=== PATIENT | female | born 1965 | race Caucasian/White ===

== ENCOUNTER 2018-08-15 14:14 | Inpatient (IN) | payer OTHER ==
[~2018-08-15] VITALS: Ht 175.3 cm; Wt 94.8 kg
[2018-08-15 14:17] VITALS: BP 128/72
--- NOTE | 2018-08-15 14:21 | NUR ---
PT BROUGHT TO ED BED 9 FOR TRIAGE, URINE OBTAINED.
[2018-08-15] MEDS ORDERED: NACL 0.9% 500 ML IV ONE (14:27)
[2018-08-15] MEDS ORDERED: ONDANSETRON 4 MG/2 ML VIAL IVP ONE (14:30)
[2018-08-15] MEDS ORDERED: MORPHINE SULFATE 2 MG/ML SYR IVP ONE (14:30)
[2018-08-15] MEDS ORDERED: PANTOPRAZOLE 40 MG INJ VIAL IVP ONE (14:30)
--- NOTE | 2018-08-15 14:41 | NUR ---
U/S AT BEDSIDE AT THIS TIME.
--- NOTE | 2018-08-15 14:43 | NUR ---
52 YO F PT BIBA C/O EPIGASTRIC PAIN RADIATION TO BACK X 2 DAYS WITH HEMATEMESIS, AND BLOOD IN STOOL. NO SOB OR CP NOTED. +N/V/D. PT REPORTS THAT THE PAIN GOT SO SEVERE THIS AFTERNOON THAT SHE NEEDED TO CALL 911. PT DENIES ANY FEVERS AT THIS TIME. REPORTS APPETITE CHANGES X 2 DAYS. REPORTS SHE HAS HAD INTERMITTENT PERIODS OF DIARRHEA X 2 DAYS, LAST EPISODE WAS ABOUT AN HOUR AGO. PT REPORTS BRIGHT RED BLOOD NOTED IN FECES. AAOX4, GCS 15, CMS INTACT, RR EVEN AND UNLABORED, LUNG COTA BL CLEAR. ABD SOFT, NON-TENDER. BOWEL SOUNDS ACTIVE X 4 QUADS. AMBULATORY W/ STEADY GAIT. ER MD NOTIFIED OF PT STATUS. PT NEEDS MET. SAFETY PRECAUTIONS IN PLACE. WILL CONTINUE TO MONITOR.
[2018-08-15 15:13] LABS: BASOPHILS % (AUTO) 0.2 % (0.0-2.0); EOSINOPHILS # (AUTO) 0.1 K/uL (0-0.4); EOSINOPHILS % (AUTO) 0.7 % (0.0-4.0); HEMOGLOBIN 11.9 g/dL (12.0-16.0); LYMPHOCYTES # (AUTO) 2.2 K/uL (2.5-16.5); LYMPHOCYTES % (AUTO) 23.4 % (20.5-51.1); MEAN CORPUSCULAR HEMOGLOBIN 27 pg (27-31); MEAN CORPUSCULAR HGB CONC 32 g/dL (33-37); MEAN CORPUSCULAR VOLUME 83.8 fL (80-94); MONOCYTES # (AUTO) 0.5 K/uL (0.8-1.0); MONOCYTES % (AUTO) 5.4 % (1.7-9.3); NEUTROPHILS # (AUTO) 6.5 K/uL (1.8-7.7); NEUTROPHILS % (AUTO) 70.3 % (42.2-75.2); PLATELET COUNT (AUTO) 280 K/uL (140-450); RED BLOOD CELL COUNT(AUTO) 4.42 MIL/uL (4.20-5.40); RED CELL DISTRIBUTION WIDTH 16.2 % (11.6-13.7); WHITE BLOOD COUNT (AUTO) 9.2 K/uL (4.8-10.8)
[2018-08-15 15:23] LABS: ANION GAP 12.4 (8-16); CARBON DIOXIDE 28.7 mmol/L (21-32); CREATININE 0.9 mg/dL (0.6-1.3); POTASSIUM 4.1 mmol/L (3.5-5.1)
[2018-08-15 15:30] LABS: ALBUMIN 3.5 g/dL (3.4-5.0); TOTAL BILIRUBIN 0.2 mg/dL (0.0-1.0)
--- NOTE | 2018-08-15 15:43 | NUR ---
pt resting comfortably in [facility] at this time w/ vss, rr even and unlabored. pt needs met. safety precautions in place. will continue to monitor.
--- NOTE | 2018-08-15 16:17 | NUR ---
pt aware that she will be admitted. pt w/ vss, rr even and unlabored. safety precautions in place and pt needs met. will continue to monitor.
[2018-08-15] MEDS ORDERED: ACETAMINOPHEN 325 MG TAB PO PRN (16:20)
[2018-08-15] MEDS ORDERED: ONDANSETRON 4 MG/2 ML VIAL IVP PRN (16:20)
--- NOTE | 2018-08-15 17:05 | NUR ---
Patient will be admitted to [facility]. Admited to M/S. Will go to room 112A. Belongings list completed. Report to MANN Masters.
[2018-08-15 17:10] VITALS: BP 127/82
--- NOTE | 2018-08-15 17:10 | NUR ---
RECEIVED PT FROM ED NURSE KAMLA. PT IN STABLE CONDITION. NO COMPLAINTS OF PAIN AT THIS TIME. VS STABLE. IV SITE PATENT AND ASYMPTOMATIC. PT IS AMBULATORY, GAIT EVEN AND STEADY. SKIN INTACT. UPDATED BOARD AND INTRODUCED SELF TO PT. ALL SAFETY PRECAUTIONS IN PLACE. WILL CONTINUE TO MONITOR.
[2018-08-15] MEDS: DEXT 5% /NACL 0.9% 1,000 ML IV SCH (17:48)
--- NOTE | 2018-08-15 19:25 | NUR ---
RECEIVED PATIENT LYING ON BED. PATIENT AA0X4, AMBULATORY WITH ASSIST. DISCUSS PLAN OF CARE. BED IN LOW LOCKED POSITION . CALL LIGHT WITHIN REACH. WILL CONTINUE TO MONITOR.
--- NOTE | 2018-08-15 19:25 | NUR ---
ENDORSED PLAN OF CARE TO COBOL MAINFRAME DEVELOPER RN AT BEDSIDE. PT IN STABLE CONDITION.
[2018-08-15 20:00] VITALS: BP 121/73
--- NOTE | 2018-08-15 20:30 | NUR ---
PATIENT PICK-UP BY THE ACCOUNT INFORMATION CLERK FOR HIDA SCAN VIA WHEELCHAIR. PATIENT LEFT IN STABLE CONDITION .
--- NOTE | 2018-08-15 22:00 | NUR ---
PATIENT CAME BACK FROM DG SCAN. PATIENT ASKED PAIN MEDICATION. WILL CONTINUE TO MONITOR.
[2018-08-15] MEDS: MORPHINE SULFATE 2 MG/ML SYR IVP PRN (22:17)
--- NOTE | 2018-08-16 00:20 | NUR ---
PATIENT REQUESTING STRONGER PAIN MEDICATION. CALLED DR. NARANJO DISPENSARY CLERK FOR DR. TINEO. INSTRUCTED NO CHANGE OF MEDICATION AND ORDER TO GIVE ANOTHER MORPHINE NOW 2MG. EXPLAINED THAT MORPHINE JUST GIVEN 2 HRS. AGO AND HE INSTRUCTED TO GIVE ANOTHER DOSE. FOLLOWED ORDERS AND MORPHINE GIVEN TO PATIENT . V/S TAKEN AND RECORDED.
[2018-08-16] MEDS: MORPHINE SULFATE 2 MG/ML SYR IVP PRN ×2 (01:01→06:57)
[2018-08-16] MEDS: HYDROcodone/APAP 5/325 MG 1 TAB TAB PO PRN ×4 (02:16→20:46)
--- NOTE | 2018-08-16 02:47 | NUR ---
SEEN PATIENT ASLEEP ON BED BUT EASILY AROUSABLE. NO S/S OF DISTRESS NOTED. WILL CONTINUE TO MONITOR.
[2018-08-16 04:00] VITALS: BP 115/74
--- NOTE | 2018-08-16 04:00 | NUR ---
CHECKED PATIENT ASLEEP COMFORTABLE ON BED. V/S TAKEN AND RECORDED. CALL LIGHT WITHIN REACH. NO S/S OF DISTRESS NOTED.
[2018-08-16] MEDS: DEXT 5% /NACL 0.9% 1,000 ML IV SCH ×2 (06:20→21:35)
--- NOTE | 2018-08-16 07:10 | NUR ---
GAVE REPORT TO AM SHIFT RN AT BEDSIDE FOR CONTINUITY OF CARE. PATIENT IN STABLE CONDITION.
--- NOTE | 2018-08-16 07:40 | NUR ---
PATIENT AWAKE, ALERT. RESPIRATION EVEN, UNLABOR ON ROOM AIR. SKIN DRY AND WARM. IV PATENT AND INTACT. COMPLAINED MIGRAIN AND ABDOMINAL PAIN, AND STATED MORPHINE DOES NOT HELP. WILL NOTIFY MD. PLAN OF CARE WAS DISCUSSED WITH PATIENT. BED AT LOW POSITION, SIDE RAILS UP. COMMODE AT BEDSIDE. CALL LIGHT WITHIN REACH.
--- NOTE | 2018-08-16 07:46 | NUR ---
PATIENT HAS BEEN SCREENED AND CATEGORIZED MODERATE RISK. PATIENT WILL BE SEEN WITHIN 3-5 DAYS OF ADMISSION. 08/18- [address], [facility]
[2018-08-16 08:00] VITALS: BP 108/73
[2018-08-16] MEDS ORDERED: LORA-476 PO (09:32)
[2018-08-16] MEDS ORDERED: METO25TA PO (09:32)
[2018-08-16] MEDS ORDERED: BEN50 PO (09:32)
[2018-08-16] MEDS ORDERED: OMEP20TC12 PO (09:32)
[2018-08-16] MEDS ORDERED: [UNRECOGNIZED DRUG - CODE] PO (09:32)
[2018-08-16] MEDS ORDERED: ELA50 PO (09:32)
[2018-08-16] MEDS ORDERED: BACL10TA4 PO (09:32)
[2018-08-16] MEDS ORDERED: ACET-2858 PO (09:32)
[2018-08-16] MEDS ORDERED: ACET-9234 PO (09:32)
[2018-08-16 09:39] LABS: ALBUMIN 3.3 g/dL (3.4-5.0); ANION GAP 13.6 (8-16); CARBON DIOXIDE 22.4 mmol/L (21-32); CREATININE 0.9 mg/dL (0.6-1.3); TOTAL BILIRUBIN 0.3 mg/dL (0.0-1.0)
--- NOTE | 2018-08-16 10:06 | NUR ---
PATIENT IS RESTING COMFORTABLY. RESPIRATION EVEN, UNLABOR ON ROOM AIR. NO DISTRESS NOTED AT THIS TIME. CALL LIGHT WITHIN REACH.
[2018-08-16 10:23] LABS: BASOPHILS % (AUTO) 0.3 % (0.0-2.0); EOSINOPHILS # (AUTO) 0.1 K/uL (0-0.4); EOSINOPHILS % (AUTO) 1.5 % (0.0-4.0); HEMATOCRIT 34.6 % (36-48); LYMPHOCYTES # (AUTO) 2.3 K/uL (2.5-16.5); LYMPHOCYTES % (AUTO) 34.5 % (20.5-51.1); MEAN CORPUSCULAR HEMOGLOBIN 27 pg (27-31); MEAN CORPUSCULAR HGB CONC 32 g/dL (33-37); MEAN CORPUSCULAR VOLUME 84.3 fL (80-94); MONOCYTES # (AUTO) 0.5 K/uL (0.8-1.0); MONOCYTES % (AUTO) 6.8 % (1.7-9.3); NEUTROPHILS # (AUTO) 3.7 K/uL (1.8-7.7); NEUTROPHILS % (AUTO) 56.9 % (42.2-75.2); PLATELET COUNT (AUTO) 269 K/uL (140-450); RED BLOOD CELL COUNT(AUTO) 4.11 MIL/uL (4.20-5.40); RED CELL DISTRIBUTION WIDTH 16.4 % (11.6-13.7); WHITE BLOOD COUNT (AUTO) 6.6 K/uL (4.8-10.8)
--- NOTE | 2018-08-16 10:30 | NUR ---
EXPLAINED TO PATIENT REGARDING FALL RISK PRECAUTION. PATIENT REFUSED TO CHANGE INTO YELLOW GOWN AND SOCKS, OR PUT TRANSIT CLERK LIGHT TO USE BATHROOM, STATED SHE CAN DO EVERYTHING BY HERSELF. WILL CONTINUE TO CLOSELY MONITOR.
[2018-08-16] MEDS ORDERED: LORazepam 1 MG TAB PO PRN (10:45)
[2018-08-16] MEDS ORDERED: diphenhydrAMINE 50 MG CAP PO PRN (10:45)
[2018-08-16] MEDS ORDERED: BACLOFEN 10 MG TAB PO PRN (10:45)
[2018-08-16] MEDS: KETOROLAC 15 MG/ML VIAL IVP PRN ×2 (10:59→18:26)
[2018-08-16] MEDS ORDERED: METOPROLOL SUCCINATE 50 MG TABER PO SCH (11:30)
[2018-08-16] MEDS ORDERED: PANTOPRAZOLE 40 MG TABEC PO SCH (11:30)
--- NOTE | 2018-08-16 11:36 | NUR ---
PATIENT WAS SLEEPING COMFORTABLY. RESPIRATION EVEN, UNLABOR ON ROOM AIR. INSTRUCTED PATIENT TO CALL STAFF WHEN SHE HAS BM. MEDS WERE GIVEN PER ORDER. CALL LIGHT WITHIN REACH
--- NOTE | 2018-08-16 12:45 | NUR ---
PATIENT IS SLEEPING COMFORTABLY. RESPIRATION EVEN, UNLABOR ON ROOM AIR. NO DISTRESS NOTED. CALL LIGHT WITHIN REACH
--- NOTE | 2018-08-16 14:51 | NUR ---
PATIENT IS AWAKE, ALERT. RESPIRATION EVEN, UNLABOR ON ROOM AIR. IVF WAS HUNG. PATIENT COMPLAINED OF MIGRAIN AND ABDOMINAL PAIN 6/10, WILL MEDICATE PER ORDER. CALL LIGHT WITHIN REACH
[2018-08-16 16:00] VITALS: BP 105/62
--- NOTE | 2018-08-16 16:11 | NUR ---
PATIENT COMPLAINED OF DYSURIA WITH BURNING SENSATION. MD WAS MADE AWARE. INSTRUCTED PATIENT TO DO A CLEAN CATCH URINE SAMPLE. WILL FOLLOW UP WITH RESULT.
--- NOTE | 2018-08-16 18:30 | NUR ---
PATIENT WAS SLEEPING COMFORTABLY. RESPIRATION EVEN, UNLABOR ON ROOM AIR. NO DISTRESS NOTED AT THIS TIME. PATIENT COMPLAINED OF ABDOMINAL PAIN. MED WAS GIVEN PER ORDER. CALL LIGHT WITHIN REACH
--- NOTE | 2018-08-16 19:34 | NUR ---
ENDORSEMENT GIVEN TO SEGMENTAL PAVING SUPERVISOR NURSE. PATIENT IS STABLE AT THIS TIME
--- NOTE | 2018-08-16 19:35 | NUR ---
RECEIVED REPORT FROM DAYSTXFT NURSE AT BEDSIDE FOR CONTINUITY OF CARE. PT AAOX4. PT AMBULATE WITH WALKER. PT IV LAC 22GVD5 NS 75ML/HR . NO SOB NO S/S OF DISTRESS ON RA. BED LOWERED CALL LIGHT WITHIN REACH WILL CONTINUE TO MONITOR.
[2018-08-16] MEDS: GABAPENTIN 300 MG CAP PO SCH (20:46)
[2018-08-16] MEDS ORDERED: AMITRIPTYLINE 50 MG TAB PO SCH (21:00)
--- NOTE | 2018-08-16 21:46 | NUR ---
ADMIN PAIN MED 1 HR AGO/ PT RESTING IN BED WILL CONTINUE TO MONITOR.
--- NOTE | 2018-08-16 23:02 | NUR ---
ADMIN ANXIETY MED FOR ANXIETY. PT LESS ANXIOUS RESTING IN BED WILL CONTINUE TO MONITOR.
[2018-08-17] VITALS: BP 133/68
[2018-08-17] MEDS: KETOROLAC 15 MG/ML VIAL IVP PRN ×2 (00:27→06:45)
[2018-08-17 00:53] LABS: APPEARANCE,URINE CLOUDY (CLEAR); BILIRUBIN,URINE NEGATIVE (NEGATIVE); BLOOD, URINE TRACE-I (NEGATIVE); COLOR,URINE YELLOW (YELLOW); LEUKOCYTE ESTERASE ,URINE TRACE (NEGATIVE); NITRITE, URINE POSITIVE (NEGATIVE); PH,URINE 5.5 (5.0-9.0); UGLUCOSE NEGATIVE (NEGATIVE)
--- NOTE | 2018-08-17 01:17 | NUR ---
ADMIN PAIN MED 1 HR AGO. PAIN MED EFFECTIVE PT SLEEPING WILL CONTINUE TO MONITOR.
[2018-08-17 01:21] LABS: RBC,URINE 0-5 (RARE) /HPF (0-5); WBC,URINE TOO MANY TO COUNT /HPF (0-5)
[2018-08-17] MEDS ORDERED: PANTOPRAZOLE 40 MG TABEC PO SCH (06:30)
[2018-08-17 07:23] LABS: BASOPHILS % (AUTO) 0.4 % (0.0-2.0); EOSINOPHILS # (AUTO) 0.1 K/uL (0-0.4); EOSINOPHILS % (AUTO) 1.5 % (0.0-4.0); HEMATOCRIT 34.2 % (36-48); HEMOGLOBIN 11.1 g/dL (12.0-16.0); LYMPHOCYTES # (AUTO) 2.3 K/uL (2.5-16.5); LYMPHOCYTES % (AUTO) 31.3 % (20.5-51.1); MEAN CORPUSCULAR HEMOGLOBIN 27 pg (27-31); MEAN CORPUSCULAR HGB CONC 32 g/dL (33-37); MEAN CORPUSCULAR VOLUME 83.8 fL (80-94); MONOCYTES # (AUTO) 0.4 K/uL (0.8-1.0); MONOCYTES % (AUTO) 5.7 % (1.7-9.3); NEUTROPHILS # (AUTO) 4.4 K/uL (1.8-7.7); NEUTROPHILS % (AUTO) 61.1 % (42.2-75.2); PLATELET COUNT (AUTO) 246 K/uL (140-450); RED BLOOD CELL COUNT(AUTO) 4.08 MIL/uL (4.20-5.40); RED CELL DISTRIBUTION WIDTH 16.3 % (11.6-13.7); WHITE BLOOD COUNT (AUTO) 7.2 K/uL (4.8-10.8)
--- NOTE | 2018-08-17 07:28 | NUR ---
ADMIN PAIN MED. PAIN MED EFFECTIVE. WILL CONTINUE TO MONITOR.
--- NOTE | 2018-08-17 07:29 | NUR ---
ENDORSED REPORT TO DAYSHIFT NURSE AT BEDSIDE FOR CONTINUITY OF CARE.
--- NOTE | 2018-08-17 07:30 | NUR ---
PATIENT AWAKE, ALERT. RESPIRATION EVEN, UNLABOR ON ROOM AIR. SKIN DRY AND WARM. IV PATENT AND INTACT. DENIED PAIN, SOB AT THIS TIME. PLAN OF CARE WAS DISCUSSED WITH PATIENT. BED AT LOW POSITION, SIDE RAILS UP. CALL LIGHT WITHIN REACH. BED COMMODE AT BEDSIDE. .
[2018-08-17 08:00] VITALS: BP 115/59
[2018-08-17] MEDS: GABAPENTIN 300 MG CAP PO SCH (08:50)
[2018-08-17] MEDS: DEXT 5% /NACL 0.9% 1,000 ML IV SCH (09:00)
[2018-08-17] MEDS ORDERED: METOPROLOL SUCCINATE 50 MG TABER PO SCH (09:00)
--- NOTE | 2018-08-17 09:00 | NUR ---
PATIENT WAS SLEEPING COMFORTABLY. RESPIRATION EVEN, UNLABOR ON ROOM AIR. NO DISTRESS NOTED AT THIS TIME. STOOL SAMPLE WAS COLLECTED AND SENT TO LAB
--- NOTE | 2018-08-17 10:30 | NUR ---
IV ON RIGHT AC WAS REMOVED, CATHETER INTACT, NO ACTIVE BLEEDING SEEN. PATIENT TOLERATED WELL
--- NOTE | 2018-08-17 12:30 | NUR ---
PATIENT AWAKE, ALERT, EATING LUNCH COMFORTABLY. RESPIRATION EVEN, UNLABOR ON ROOM AIR. COMPLAINED OF MIGRAINE PAIN 05/11, MED WAS GIVEN PER ORDER. CALL LIGHT WITHIN REACH
[2018-08-17] MEDS: HYDROcodone/APAP 5/325 MG 1 TAB TAB PO PRN (12:33)
--- NOTE | 2018-08-17 14:00 | NUR ---
PATIENT IS SLEEPING COMFORTABLY. RESPIRATION EVEN, UNLABOR ON ROOM AIR. NO DISTRESS NOTED AT THIS TIME. CALL LIGHT WITHIN REACH
--- NOTE | 2018-08-17 15:51 | NUR ---
DISCHARGE INSTRUCTION AND PRESCRIPTION WERE GIVEN AND EXPLAINED TO THE PATIENT. PATIENT VERBALIZED UNDERSTANDING. ID WAS REMOVED. ALL BELONGINGS WERE TAKEN WITH THE PATIENT. PATIENT WAS ESCORTED OUT BY STAFF IN WHEELCHAIR. PATIENT IS STABLE AT THIS TIME
[2018-08-17 15:52] VITALS: BP 131/70
[2018-08-17] MEDS ORDERED: SULF-58 PO (15:55)
--- NOTE | 2018-08-18 07:49 | NUR ---
RETRO FAXED ER REPORT, H&P, CONSULT AND DISCHARGE INSTRUCTIONS TO [facility] [place] [phone] NO DISCHARGE SUMMARY
== END 2018-08-17 15:58 | disposition home or self-care (01) | DRG 241 ==
LOC: MED 14:14 → MTU 16:22
PROVIDERS: ADMIT Hospitalist; ATTEND Hospitalist
DX: K27.9 Peptic ulcer, site unspecified, unspecified as acute or chronic, without hemorrhage or perforation (principal); I11.0 Hypertensive heart disease with heart failure; I50.42 Chronic combined systolic (congestive) and diastolic (congestive) heart failure; E66.01 Morbid (severe) obesity due to excess calories; K21.9 Gastro-esophageal reflux disease without esophagitis; E78.00 Pure hypercholesterolemia, unspecified; F32.9 Major depressive disorder, single episode, unspecified; M79.7 Fibromyalgia; E78.5 Hyperlipidemia, unspecified; I25.10 Atherosclerotic heart disease of native coronary artery without angina pectoris; F41.9 Anxiety disorder, unspecified; Z88.1 Allergy status to other antibiotic agents; Z88.8 Allergy status to other drugs, medicaments and biological substances; Z86.73 Personal history of transient ischemic attack (TIA), and cerebral infarction without residual deficits; Z90.49 Acquired absence of other specified parts of digestive tract; Z90.710 Acquired absence of both cervix and uterus; Z68.30 Body mass index [BMI] 30.0-30.9, adult
CPT/HCPCS: 36415; 71045; 76705; 78445; 80053; 81001; 82272; 83690; 85025; 87045; 87081; 87086; 87186; 89055; 93005; 96361; 96374; 96375; 99285; A9510; C9113; J1885; J2270; J2405; J7030; J7042; Q0092

== ENCOUNTER 2018-11-27 12:04 | Inpatient (IN) | payer OTHER ==
[~2018-11-27] VITALS: Ht 167.6 cm; Wt 113.4 kg
[~2018-11-27 12:04] MED LIST: ACET-9234 PO; BACL10TA4 PO; BEN50 PO; ELA50 PO; HYDR-5092 PO; LORA-476 PO; METO25TA PO; OMEP20TC12 PO; SULF-58 PO; [UNRECOGNIZED DRUG - CODE] PO
[2018-11-27 12:05] VITALS: BP 145/97
[2018-11-27] MEDS ORDERED: HYDROmorphone PFS 2 MG/ML SYR IVP ONE ×2 (12:55→14:10)
[2018-11-27] MEDS ORDERED: NITROGLYCERIN 2% 1 GM PKT TP ONE (12:55)
[2018-11-27] MEDS ORDERED: ASPIRIN 325 MG TAB PO ONE (12:55)
[2018-11-27 13:46] LABS: BASOPHILS % (AUTO) 0.3 % (0.0-2.0); EOSINOPHILS # (AUTO) 0.1 K/uL (0-0.4); HEMATOCRIT 35.9 % (36-48); HEMOGLOBIN 11.4 g/dL (12.0-16.0); LYMPHOCYTES % (AUTO) 27.5 % (20.5-51.1); MEAN CORPUSCULAR HEMOGLOBIN 26 pg (27-31); MEAN CORPUSCULAR HGB CONC 32 g/dL (33-37); MONOCYTES # (AUTO) 0.4 K/uL (0.8-1.0); MONOCYTES % (AUTO) 5.3 % (1.7-9.3); NEUTROPHILS # (AUTO) 4.7 K/uL (1.8-7.7); NEUTROPHILS % (AUTO) 65.9 % (42.2-75.2); PLATELET COUNT (AUTO) 222 K/uL (140-450); RED BLOOD CELL COUNT(AUTO) 4.33 MIL/uL (4.20-5.40); RED CELL DISTRIBUTION WIDTH 16.8 % (11.6-13.7); WHITE BLOOD COUNT (AUTO) 7.2 K/uL (4.8-10.8)
[2018-11-27 14:14] LABS: ANION GAP 10.9 (8-16); CREATININE 0.8 mg/dL (0.6-1.3); POTASSIUM 3.9 mmol/L (3.5-5.1)
[2018-11-27 14:27] LABS: ALBUMIN 3.4 g/dL (3.4-5.0); TOTAL BILIRUBIN 0.1 mg/dL (0.0-1.0)
[2018-11-27 14:40] LABS: CHOL/HDL RATIO 2.9 (1-4.5)
[2018-11-27 14:56] LABS: CREATINE KINASE MB 0.3 ng/mL (0-3.6)
[2018-11-27] MEDS ORDERED: ACETAMINOPHEN 325 MG TAB PO PRN (15:40)
[2018-11-27] MEDS ORDERED: diphenhydrAMINE 50 MG CAP PO PRN (15:40)
[2018-11-27] MEDS ORDERED: LORazepam 1 MG TAB PO PRN (15:40)
[2018-11-27] MEDS ORDERED: ONDANSETRON 4 MG/2 ML VIAL IVP PRN (15:40)
[2018-11-27] MEDS ORDERED: ALBUTEROL 0.083% 2.5 MG/3 ML NEBU INH PRN (15:40)
[2018-11-27 17:20] VITALS: BP 132/83
[2018-11-27] MEDS: HYDROmorphone PFS 2 MG/ML SYR IVP PRN (19:39)
[2018-11-27 20:00] VITALS: BP 136/81
[2018-11-27] MEDS: BACLOFEN 10 MG TAB PO SCH (21:25)
[2018-11-27] MEDS: AMITRIPTYLINE 50 MG TAB PO SCH (21:25)
[2018-11-27] MEDS: METOPROLOL 25 MG TAB PO SCH (21:26)
[2018-11-27] MEDS: HYDROcodone/APAP 10/325 MG 1 TAB TAB PO PRN (21:28)
[2018-11-28 00:02] VITALS: BP 111/70
[2018-11-28] MEDS: HYDROmorphone PFS 2 MG/ML SYR IVP PRN ×6 (00:02→20:27)
[2018-11-28] MEDS: HYDROcodone/APAP 10/325 MG 1 TAB TAB PO PRN ×2 (02:49→18:29)
[2018-11-28 04:09] VITALS: BP 113/64
[2018-11-28 08:00] VITALS: BP 128/78
[2018-11-28] MEDS: BACLOFEN 10 MG TAB PO SCH ×2 (08:16→20:28)
[2018-11-28] MEDS: ASPIRIN 81 MG TAB.CHEW PO SCH (08:17)
[2018-11-28] MEDS: METOPROLOL 25 MG TAB PO SCH ×2 (08:18→20:28)
[2018-11-28 12:00] VITALS: BP 125/75
[2018-11-28] MEDS ORDERED: ALUMINUM HYD/MAG/SIMETHICONE 30 ML UDC PO PRN (12:25)
[2018-11-28] MEDS ORDERED: PANT40EC PO (12:30)
[2018-11-28] MEDS ORDERED: PANTOPRAZOLE 40 MG TABEC PO SCH (13:00)
[2018-11-28 15:59] LABS: PROTHROMBIN TIME 9.8 secs (10.8-13.4)
[2018-11-28 16:00] VITALS: BP 111/66
[2018-11-28] MEDS: PANTOPRAZOLE 40 MG TABEC PO SCH (16:13)
[2018-11-28 20:00] VITALS: BP 135/80
[2018-11-28] MEDS: AMITRIPTYLINE 50 MG TAB PO SCH (20:29)
[2018-11-29] VITALS: BP 113/70
[2018-11-29] MEDS: HYDROmorphone PFS 2 MG/ML SYR IVP PRN ×4 (00:28→14:25)
[2018-11-29] MEDS: HYDROcodone/APAP 10/325 MG 1 TAB TAB PO PRN ×2 (01:38→08:48)
[2018-11-29] MEDS: AMITRIPTYLINE 50 MG TAB PO SCH (01:41)
[2018-11-29 04:00] VITALS: BP 98/62
[2018-11-29] MEDS: PANTOPRAZOLE 40 MG TABEC PO SCH (06:06)
[2018-11-29 08:00] VITALS: BP 134/89
[2018-11-29] MEDS: ASPIRIN 81 MG TAB.CHEW PO SCH (08:48)
[2018-11-29] MEDS: METOPROLOL 25 MG TAB PO SCH (08:48)
[2018-11-29] MEDS: BACLOFEN 10 MG TAB PO SCH (08:48)
[2018-11-29 12:00] VITALS: BP 128/75
[2018-11-29 12:34] LABS: BASOPHILS % (AUTO) 0.5 % (0.0-2.0); EOSINOPHILS # (AUTO) 0.1 K/uL (0-0.4); EOSINOPHILS % (AUTO) 1.5 % (0.0-4.0); HEMOGLOBIN 10.5 g/dL (12.0-16.0); LYMPHOCYTES # (AUTO) 1.9 K/uL (2.5-16.5); LYMPHOCYTES % (AUTO) 25.2 % (20.5-51.1); MEAN CORPUSCULAR HEMOGLOBIN 26 pg (27-31); MEAN CORPUSCULAR HGB CONC 32 g/dL (33-37); MEAN CORPUSCULAR VOLUME 83.1 fL (80-94); MONOCYTES # (AUTO) 0.5 K/uL (0.8-1.0); MONOCYTES % (AUTO) 6.3 % (1.7-9.3); NEUTROPHILS % (AUTO) 66.5 % (42.2-75.2); PLATELET COUNT (AUTO) 213 K/uL (140-450); RED BLOOD CELL COUNT(AUTO) 3.97 MIL/uL (4.20-5.40); RED CELL DISTRIBUTION WIDTH 16.3 % (11.6-13.7); WHITE BLOOD COUNT (AUTO) 7.6 K/uL (4.8-10.8)
[2018-11-29 12:59] LABS: CREATININE 0.8 mg/dL (0.6-1.3); MAGNESIUM 1.8 mg/dL (1.8-2.4); TOTAL BILIRUBIN 0.1 mg/dL (0.0-1.0)
[2018-11-29] MEDS ORDERED: CHLORHEXADINE GLUC 2% CLOTH TP SCH (14:00)
[2018-11-29] MEDS ORDERED: MUPIROCIN 2% OINT 22 GM TUBE TP SCH (14:00)
[2018-11-29 16:00] VITALS: BP 116/79
== END 2018-11-29 17:20 | disposition home or self-care (01) | DRG 203 ==
LOC: MED 12:04 → MMU 15:42 → MTU 17:43
PROVIDERS: ADMIT Internal Medicine Pulmonary Disease; ATTEND Internal Medicine Pulmonary Disease
DX: R07.89 Other chest pain (principal); I42.9 Cardiomyopathy, unspecified; I11.0 Hypertensive heart disease with heart failure; G62.9 Polyneuropathy, unspecified; I50.9 Heart failure, unspecified; Z68.41 Body mass index [BMI] 40.0-44.9, adult; K21.9 Gastro-esophageal reflux disease without esophagitis; E78.5 Hyperlipidemia, unspecified; F17.210 Nicotine dependence, cigarettes, uncomplicated; G43.909 Migraine, unspecified, not intractable, without status migrainosus; M79.7 Fibromyalgia; G89.4 Chronic pain syndrome; E66.9 Obesity, unspecified; F41.9 Anxiety disorder, unspecified; Z86.73 Personal history of transient ischemic attack (TIA), and cerebral infarction without residual deficits; Z90.710 Acquired absence of both cervix and uterus; Z90.49 Acquired absence of other specified parts of digestive tract; Z98.891 History of uterine scar from previous surgery; Z88.6 Allergy status to analgesic agent; Z88.1 Allergy status to other antibiotic agents; Z88.5 Allergy status to narcotic agent; Z88.8 Allergy status to other drugs, medicaments and biological substances; Z79.899 Other long term (current) drug therapy
CPT/HCPCS: 36415; 71045; 80053; 82550; 82553; 83735; 83880; 84484; 85025; 85379; 85610; 85730; 87081; 93005; 94640; 96372; 99291; J1170; J7613

== ENCOUNTER 2018-12-12 19:41 | Emergency (ER) | payer OTHER ==
[~2018-12-12] VITALS: Ht 167.6 cm; Wt 108.9 kg
[2018-12-12 19:41] VITALS: BP 149/80
[~2018-12-12 19:41] MED LIST changes: -OMEP20TC12 PO; +PANT40EC PO; -SULF-58 PO
[2018-12-12 20:31] LABS: BASOPHILS % (AUTO) 0.4 % (0.0-2.0); EOSINOPHILS # (AUTO) 0.1 K/uL (0-0.4); EOSINOPHILS % (AUTO) 1.2 % (0.0-4.0); HEMATOCRIT 37.3 % (36-48); HEMOGLOBIN 11.9 g/dL (12.0-16.0); LYMPHOCYTES # (AUTO) 2.3 K/uL (2.5-16.5); LYMPHOCYTES % (AUTO) 22.2 % (20.5-51.1); MEAN CORPUSCULAR HEMOGLOBIN 26 pg (27-31); MEAN CORPUSCULAR HGB CONC 32 g/dL (33-37); MEAN CORPUSCULAR VOLUME 82.2 fL (80-94); MONOCYTES # (AUTO) 0.5 K/uL (0.8-1.0); MONOCYTES % (AUTO) 4.8 % (1.7-9.3); NEUTROPHILS # (AUTO) 7.5 K/uL (1.8-7.7); NEUTROPHILS % (AUTO) 71.4 % (42.2-75.2); PLATELET COUNT (AUTO) 301 K/uL (140-450); RED BLOOD CELL COUNT(AUTO) 4.54 MIL/uL (4.20-5.40); WHITE BLOOD COUNT (AUTO) 10.6 K/uL (4.8-10.8)
[2018-12-12 21:10] LABS: ALBUMIN 3.5 g/dL (3.4-5.0); ANION GAP 11.6 (8-16); CARBON DIOXIDE 28.4 mmol/L (21-32); TOTAL BILIRUBIN 0.2 mg/dL (0.0-1.0)
[2018-12-12] MEDS ORDERED: MORPHINE SULFATE 4 MG/ML SYR IVP ONE (22:20)
[2018-12-13] MEDS ORDERED: MORPHINE SULFATE 4 MG/ML SYR IVP ONE (00:15)
[2018-12-13 00:46] VITALS: BP 128/86
== END 2018-12-13 00:46 | disposition home or self-care (01) ==
LOC: MED 19:41
DX: R07.9 Chest pain, unspecified (principal); I11.0 Hypertensive heart disease with heart failure; I50.9 Heart failure, unspecified; F17.210 Nicotine dependence, cigarettes, uncomplicated; Z90.49 Acquired absence of other specified parts of digestive tract; Z90.710 Acquired absence of both cervix and uterus; Z86.73 Personal history of transient ischemic attack (TIA), and cerebral infarction without residual deficits; Z79.899 Other long term (current) drug therapy; Z88.6 Allergy status to analgesic agent; Z88.1 Allergy status to other antibiotic agents; Z88.8 Allergy status to other drugs, medicaments and biological substances
CPT/HCPCS: 36415; 71045; 80053; 83880; 84484; 85025; 93005; 96374; 96376; 99284; J2270; Q0092

== ENCOUNTER 2019-06-04 20:23 | Emergency (ER) | payer OTHER ==
[~2019-06-04] VITALS: Ht 167.6 cm; Wt 108.9 kg
[~2019-06-04 20:23] MED LIST changes: +GABA600T12 PO; -[UNRECOGNIZED DRUG - CODE] PO
[2019-06-04 20:24] VITALS: BP 135/74
--- NOTE | 2019-06-04 20:28 | NUR ---
PT BIBA TO BED 04.
--- NOTE | 2019-06-04 20:38 | NUR ---
PT TO ED VIA EMS FOR C/O BILATERAL LEG PAIN. PT DENIES INJURY OR TRAUMA. PER PT "I WAS STANDING UP TO USE THE RESTROOM AND THEN ALL OF A SUDDEN I COULDNT GET UP" NO OBVIOUS DEFORMITY NOTED. PT PLACED INTO BED, PENDING MD MUELLER.
--- NOTE | 2019-06-04 21:01 | NUR ---
Dr. Robb examining patient.
[2019-06-04] MEDS ORDERED: MORPHINE SULFATE 4 MG/ML SYR IM ONE (21:10)
--- NOTE | 2019-06-04 21:10 | NUR ---
PT REQUESTING X RAY OF LEG. PT STATES "I WANT AN X RAY, MY TOE HURTS WHENEVER I MOVE IT" EXPLAINED TO PT THAT SHE IS RECEIVING A CT SCAN. ER AWARE.
--- NOTE | 2019-06-04 21:20 | NUR ---
PT TO CT VIA [facility].
[2019-06-04] MEDS ORDERED: ONDANSETRON 4 MG/2 ML VIAL IVP ONE (21:55)
[2019-06-04] MEDS ORDERED: MORPHINE SULFATE 10 MG/ML VIAL IVP ONE (21:55)
--- NOTE | 2019-06-04 22:02 | NUR ---
PT TAKEN TO RAD
--- NOTE | 2019-06-04 22:32 | NUR ---
PT RETURN FROM RAD
--- NOTE | 2019-06-04 22:35 | NUR ---
ASSISTED PT TO RESTROOM VIA W/C.
--- NOTE | 2019-06-04 22:37 | NUR ---
IV INFLITRATED. ER MD AWARE. OKAY TO GIVE MEDS IM PER .
--- NOTE | 2019-06-04 22:45 | NUR ---
IV removed, catheter intact and site benign. Applied folded 4x4 gauze and tape to stop bleeding.
[2019-06-04 22:56] VITALS: BP 106/73
--- NOTE | 2019-06-04 22:56 | NUR ---
Patient discharged with v/s stable. Written and verbal after care instructions given and explained. Patient alert, oriented and verbalized understanding of instructions. Wheel Chair Assisted with by caregiver. All questions addressed prior to discharge. ID band removed. Patient advised to follow up with PMD. Rx of VALIUM, NARACAN given. Patient educated on indication of medication including possible reaction and side effects. Opportunity to ask questions provided and answered.
== END 2019-06-04 22:56 | disposition home or self-care (01) ==
LOC: MED 20:23
DX: M54.41 Lumbago with sciatica, right side (principal); M54.42 Lumbago with sciatica, left side; I11.0 Hypertensive heart disease with heart failure; I50.9 Heart failure, unspecified; J44.9 Chronic obstructive pulmonary disease, unspecified; K21.9 Gastro-esophageal reflux disease without esophagitis; Z86.73 Personal history of transient ischemic attack (TIA), and cerebral infarction without residual deficits; Z90.49 Acquired absence of other specified parts of digestive tract; Z90.710 Acquired absence of both cervix and uterus; Z88.2 Allergy status to sulfonamides; Z88.1 Allergy status to other antibiotic agents; Z88.8 Allergy status to other drugs, medicaments and biological substances
CPT/HCPCS: 72131; 72192; 73560; 73600; 96372; 99284; J2270; J2405; Q0092

== ENCOUNTER 2019-08-31 13:03 | Emergency (ER) | payer OTHER ==
[~2019-08-31] VITALS: Ht 167.6 cm; Wt 113.4 kg
[2019-08-31 13:03] VITALS: BP 134/80
--- NOTE | 2019-08-31 13:55 | NUR ---
c/o sudden onset of midsternal chest pain radiating to left side of neck x today denies injury---adds feeling very tired and sob ===nc 2L o2 placed
--- NOTE | 2019-08-31 14:03 | NUR ---
XRAY AT BEDSIDE.
--- NOTE | 2019-08-31 14:08 | NUR ---
LAB AT BEDSIDE. PT TO GIVE URINE AFTER, PROVIDED WITH COLLECTION HAT FOR URINE SAMPLE.
[2019-08-31 14:56] LABS: BASOPHILS % (AUTO) 0.3 % (0.0-2.0); EOSINOPHILS % (AUTO) 0.4 % (0.0-4.0); HEMATOCRIT 38.4 % (36-48); HEMOGLOBIN 12.3 g/dL (12.0-16.0); LYMPHOCYTES % (AUTO) 22.1 % (20.5-51.1); MEAN CORPUSCULAR HEMOGLOBIN 28 pg (27-31); MEAN CORPUSCULAR HGB CONC 32 g/dL (33-37); MEAN CORPUSCULAR VOLUME 86.1 fL (80-94); MONOCYTES # (AUTO) 0.4 K/uL (0.8-1.0); MONOCYTES % (AUTO) 4.6 % (1.7-9.3); NEUTROPHILS # (AUTO) 6.6 K/uL (1.8-7.7); NEUTROPHILS % (AUTO) 72.6 % (42.2-75.2); PLATELET COUNT (AUTO) 248 K/uL (140-450); RED BLOOD CELL COUNT(AUTO) 4.46 MIL/uL (4.20-5.40); RED CELL DISTRIBUTION WIDTH 16.2 % (11.6-13.7); WHITE BLOOD COUNT (AUTO) 9.1 K/uL (4.8-10.8)
[2019-08-31 15:21] LABS: PROTHROMBIN TIME 9.7 secs (10.8-13.4)
--- NOTE | 2019-08-31 15:45 | NUR ---
MED NOTIFIED FOR PAIN MEDS
[2019-08-31 16:04] LABS: ANION GAP 15.8 (8-16); CARBON DIOXIDE 27.2 mmol/L (21-32); CREATININE 0.8 mg/dL (0.6-1.3); TOTAL BILIRUBIN 0.2 mg/dL (0.0-1.0)
[2019-08-31 16:05] LABS: ALBUMIN 3.6 g/dL (3.4-5.0)
[2019-08-31] MEDS ORDERED: MORPHINE SULFATE 2 MG/ML SYR IVP ONE (16:05)
[2019-08-31 17:06] LABS: APPEARANCE,URINE CLEAR (CLEAR); BILIRUBIN,URINE NEGATIVE (NEGATIVE); BLOOD, URINE TRACE-I (NEGATIVE); COLOR,URINE YELLOW (YELLOW); LEUKOCYTE ESTERASE ,URINE TRACE (NEGATIVE); NITRITE, URINE NEGATIVE (NEGATIVE); UGLUCOSE NEGATIVE (NEGATIVE)
[2019-08-31 17:21] LABS: RBC,URINE 0-5 /HPF (0-5); WBC,URINE 0-5 /HPF (0-5)
[2019-08-31 18:15] VITALS: BP 136/81
== END 2019-08-31 18:15 | disposition home or self-care (01) ==
LOC: MED 13:03
DX: R07.89 Other chest pain (principal); R05 Cough; R06.02 Shortness of breath; I11.0 Hypertensive heart disease with heart failure; I50.9 Heart failure, unspecified; K21.9 Gastro-esophageal reflux disease without esophagitis; J44.9 Chronic obstructive pulmonary disease, unspecified; Z86.73 Personal history of transient ischemic attack (TIA), and cerebral infarction without residual deficits; Z88.1 Allergy status to other antibiotic agents; Z88.6 Allergy status to analgesic agent; Z88.8 Allergy status to other drugs, medicaments and biological substances; Z79.899 Other long term (current) drug therapy
CPT/HCPCS: 36415; 71045; 80053; 81001; 83605; 83880; 84484; 85025; 85610; 85730; 87040; 87086; 93005; 96374; 99284; J2270; Q0092; 81002

== ENCOUNTER 2019-09-18 06:19 | Day surgery (SDC) | payer OTHER ==
[~2019-09-18] VITALS: Ht 167.6 cm; Wt 115.2 kg
[2019-09-18 07:18] LABS: ALBUMIN 3.3 g/dL (3.4-5.0); ANION GAP 14.2 (8-16); CARBON DIOXIDE 25.2 mmol/L (21-32); CREATININE 0.8 mg/dL (0.6-1.3); POTASSIUM 3.4 mmol/L (3.5-5.1); TOTAL BILIRUBIN 0.3 mg/dL (0.0-1.0)
[2019-09-18 07:23] LABS: BASOPHILS % (AUTO) 0.2 % (0.0-2.0); EOSINOPHILS # (AUTO) 0.1 K/uL (0-0.4); HEMATOCRIT 32.6 % (36-48); HEMOGLOBIN 10.4 g/dL (12.0-16.0); LYMPHOCYTES # (AUTO) 1.6 K/uL (2.5-16.5); LYMPHOCYTES % (AUTO) 30.7 % (20.5-51.1); MEAN CORPUSCULAR HEMOGLOBIN 28 pg (27-31); MEAN CORPUSCULAR HGB CONC 32 g/dL (33-37); MEAN CORPUSCULAR VOLUME 86.1 fL (80-94); MONOCYTES # (AUTO) 0.4 K/uL (0.8-1.0); MONOCYTES % (AUTO) 7.5 % (1.7-9.3); NEUTROPHILS # (AUTO) 3.1 K/uL (1.8-7.7); NEUTROPHILS % (AUTO) 59.6 % (42.2-75.2); PLATELET COUNT (AUTO) 247 K/uL (140-450); RED BLOOD CELL COUNT(AUTO) 3.78 MIL/uL (4.20-5.40); RED CELL DISTRIBUTION WIDTH 16.3 % (11.6-13.7); WHITE BLOOD COUNT (AUTO) 5.2 K/uL (4.8-10.8)
[2019-09-18] MEDS ORDERED: PROPOFOL 200 MG/20 ML VIAL IV ONE (08:43)
[2019-09-18] MEDS ORDERED: MIDAZOLAM 2 MG/2 ML VIAL ONE (08:52)
[2019-09-18] MEDS ORDERED: LACTATED RINGERS 1,000 ML IV SCH (09:22)
[2019-09-18] MEDS ORDERED: diphenhydrAMINE 50 MG/ML VIAL IVP PRN (09:25)
[2019-09-18] MEDS ORDERED: ONDANSETRON 4 MG/2 ML VIAL IVP PRN (09:25)
== END 2019-09-18 10:35 | disposition home or self-care (01) ==
LOC: MMU 06:19 → MOR 06:19
PROVIDERS: ATTEND Internal Medicine Gastroenterology
DX: Z12.11 Encounter for screening for malignant neoplasm of colon (principal); K57.30 Diverticulosis of large intestine without perforation or abscess without bleeding; K64.4 Residual hemorrhoidal skin tags; K44.9 Diaphragmatic hernia without obstruction or gangrene; K85.90 Acute pancreatitis without necrosis or infection, unspecified; Z80.0 Family history of malignant neoplasm of digestive organs; I10 Essential (primary) hypertension; M79.7 Fibromyalgia; G43.909 Migraine, unspecified, not intractable, without status migrainosus; M19.90 Unspecified osteoarthritis, unspecified site; E78.00 Pure hypercholesterolemia, unspecified; K21.9 Gastro-esophageal reflux disease without esophagitis; E66.01 Morbid (severe) obesity due to excess calories; Z68.41 Body mass index [BMI] 40.0-44.9, adult; Z87.442 Personal history of urinary calculi; F17.200 Nicotine dependence, unspecified, uncomplicated; Z88.1 Allergy status to other antibiotic agents; Z88.8 Allergy status to other drugs, medicaments and biological substances; Z79.899 Other long term (current) drug therapy; G89.29 Other chronic pain
CPT/HCPCS: 36415; 43235; 45378; 71045; 80053; 85025; 93005; J2704; J7030; J7120; Q0092; J2250

== ENCOUNTER 2019-10-11 22:03 | Inpatient (IN) | payer OTHER ==
[~2019-10-11] VITALS: Ht 167.6 cm; Wt 113.4 kg
[2019-10-11 22:03] VITALS: BP 118/81
--- NOTE | 2019-10-11 22:03 | NUR ---
[facility] ALS TO ER BED 03
[2019-10-11] MEDS ORDERED: MORPHINE SULFATE 4 MG/ML SYR IVP ONE (22:25)
--- NOTE | 2019-10-11 22:30 | NUR ---
53 Y/O FEMALE BROUGHT IN BY AMBULANCE FROM HOME WITH C/O CHEST PAIN 08/11, SOB, SHE WAS GIVEN NITRO ENROUTE, ON SINUS TACHYCARDIA. ERMD MADE AWARE. PLACED ON MONITOR. WILL CONTINUE TO MONITOR PMH:CHF ALLERGIES: SEE MED REC.
--- NOTE | 2019-10-11 22:30 | NUR ---
EKG PERFORMED AT BEDSIDE
[2019-10-11 23:04] LABS: BASOPHILS % (AUTO) 0.2 % (0.0-2.0); EOSINOPHILS # (AUTO) 0.1 K/uL (0-0.4); EOSINOPHILS % (AUTO) 0.9 % (0.0-4.0); HEMATOCRIT 32.4 % (36-48); HEMOGLOBIN 10.4 g/dL (12.0-16.0); LYMPHOCYTES # (AUTO) 2.5 K/uL (2.5-16.5); LYMPHOCYTES % (AUTO) 27.4 % (20.5-51.1); MEAN CORPUSCULAR HEMOGLOBIN 28 pg (27-31); MEAN CORPUSCULAR HGB CONC 32 g/dL (33-37); MEAN CORPUSCULAR VOLUME 86.5 fL (80-94); MONOCYTES # (AUTO) 0.5 K/uL (0.8-1.0); MONOCYTES % (AUTO) 5.7 % (1.7-9.3); NEUTROPHILS # (AUTO) 5.9 K/uL (1.8-7.7); NEUTROPHILS % (AUTO) 65.8 % (42.2-75.2); PLATELET COUNT (AUTO) 229 K/uL (140-450); RED BLOOD CELL COUNT(AUTO) 3.75 MIL/uL (4.20-5.40); RED CELL DISTRIBUTION WIDTH 15.9 % (11.6-13.7)
[2019-10-11 23:15] LABS: ANION GAP 13.7 (8-16); CARBON DIOXIDE 26.1 mmol/L (21-32); CREATININE 0.8 mg/dL (0.6-1.3); POTASSIUM 3.8 mmol/L (3.5-5.1)
[2019-10-11 23:21] LABS: ALBUMIN 3.1 g/dL (3.4-5.0); TOTAL BILIRUBIN 0.1 mg/dL (0.0-1.0)
[2019-10-12 01:00] VITALS: BP 119/84
--- NOTE | 2019-10-12 01:00 | NUR ---
. Admited to [id number]. Belongings list completed. Report to MANN COLUNGA .
--- NOTE | 2019-10-12 01:00 | NUR ---
RECEIVED BEDSIDE REPORT FROM ED RN MIKE, FOR PT'S CONTINUITY OF CARE. PT IS AAOX4, ON FLYING SHEAR OPERATOR, ON ROOM AIR, HAS RIGHT FA 20G SALINE LOCK, C/O CHEST PAIN. PT'S SKIN IS INTACT. WILL RICHI FOR ADDITIONAL ORDERS. EXPLAINED TO PT THE STOCK ROOM MANAGER ROUTINE, PT VERBALIZED UNDERSTANDING. SAFETY MEASURES IN PLACE. BED ON LOW POSITION, SIDE RAILS ARE UP, AND CALL LIGHT IS WITHIN REACH. WILL MONITOR PT THROUGHOUT SHIFT.
--- NOTE | 2019-10-12 03:00 | NUR ---
PAGED AND SPOKE WITH DR. BOSCH FOR ADDITIONAL ORDERS. REPEAT LAB WORK - CBC, BMP, AND SCHEDULED TROPONIN, MORPHINE 2NG Q6H PRN FOR SEVERE PAIN, AND FULL CODE STATUS. WILL CARRY OUT ORDERS.
[2019-10-12 04:00] VITALS: BP 116/76
--- NOTE | 2019-10-12 04:00 | NUR ---
VS CHECKED AND CHARTED. PT C/O CHEST PAIN, NON RADIATING. WILL MEDICATE. PT REQUESTED FOR SNACKS, JELLO AND PUDDING GIVEN.
[2019-10-12] MEDS: MORPHINE SULFATE 2 MG/ML SYR IVP PRN ×2 (04:24→11:00)
--- NOTE | 2019-10-12 04:24 | NUR ---
PT C/O SEVERE CHEST PAIN. ADMINISTERED PRN IV PUSH PAIN MEDICATION ORDERED. WILL CONTINUE TO MONITOR PT.
--- NOTE | 2019-10-12 05:58 | NUR ---
PT LYING DOWN ASLEEP WITH NO SIGNS OF DISTRESS. WILL ENDORSE TO AM SHIFT RN FOR PT'S CONTINUITY OF CARE.
--- NOTE | 2019-10-12 07:27 | NUR ---
RECEIVED REPORT FROM NIGHT RN. PATIENT IS FULL CODE, CAME FROM HOME. MANY ALLERGIES PRESENT. 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 AAOX4, ROOM AIR. IV TO RIGHT FA 20G SALINE LOCK. SKIN IS INTACT. PT REQUESTS BP TAKEN ON LEFT RADIAL. CURRENTLY IN BED SLEEPING, VISIBLE CHEST RISE AND FALL. WILL CONTINUE WITH PLAN OF CARE FOR THE DAY.
[2019-10-12 07:33] LABS: BASOPHILS % (AUTO) 0.3 % (0.0-2.0); EOSINOPHILS # (AUTO) 0.1 K/uL (0-0.4); EOSINOPHILS % (AUTO) 1.9 % (0.0-4.0); HEMATOCRIT 31.3 % (36-48); HEMOGLOBIN 10.1 g/dL (12.0-16.0); LYMPHOCYTES # (AUTO) 2.7 K/uL (2.5-16.5); LYMPHOCYTES % (AUTO) 41.2 % (20.5-51.1); MEAN CORPUSCULAR HEMOGLOBIN 28 pg (27-31); MEAN CORPUSCULAR HGB CONC 32 g/dL (33-37); MEAN CORPUSCULAR VOLUME 86.7 fL (80-94); MONOCYTES # (AUTO) 0.4 K/uL (0.8-1.0); MONOCYTES % (AUTO) 6.1 % (1.7-9.3); NEUTROPHILS # (AUTO) 3.3 K/uL (1.8-7.7); NEUTROPHILS % (AUTO) 50.5 % (42.2-75.2); PLATELET COUNT (AUTO) 224 K/uL (140-450); RED BLOOD CELL COUNT(AUTO) 3.61 MIL/uL (4.20-5.40); RED CELL DISTRIBUTION WIDTH 16.1 % (11.6-13.7); WHITE BLOOD COUNT (AUTO) 6.5 K/uL (4.8-10.8)
[2019-10-12 07:35] LABS: ANION GAP 10.9 (8-16); CARBON DIOXIDE 28.8 mmol/L (21-32); CREATININE 0.7 mg/dL (0.6-1.3); POTASSIUM 3.7 mmol/L (3.5-5.1)
[2019-10-12 08:00] VITALS: BP 122/67
--- NOTE | 2019-10-12 08:28 | NUR ---
PATIENT HAS BEEN SCREENED AND CATEGORIZED MODERATE NUTRITION RISK. PATIENT WILL BE SEEN WITHIN 3-5 DAYS OF ADMISSION. 10/14/19 10/16/[address]
--- NOTE | 2019-10-12 09:56 | NUR ---
PATIENT STATED TO IV GETTING CAUGHT AND IV LINE COMING OUT. CANNULA INTACT. WILL INSERT NEW IV LINE
--- NOTE | 2019-10-12 10:30 | NUR ---
NEW IV TO RIGHT HAND 22GAUGE
--- NOTE | 2019-10-12 11:01 | NUR ---
MEDICATED PATIENT FOR CHEST PAIN 08/11
[2019-10-12 12:00] VITALS: BP 144/81
--- NOTE | 2019-10-12 13:30 | NUR ---
PATIENT REQUESTED MORPHINE DOSE. INFORMED HER NEXT DOSE IS NOT DUE. SPOKE TO DR CALL AND RECEIVED TELEPHONE ORDER FOR ONE TIME DOSE OF MORPHINE 2MG.
--- NOTE | 2019-10-12 13:54 | NUR ---
PATIENT SIGNED DISCHARGE PAPERWORK. PATIENT COULD NOT CONTACT FAMILY MEMBER TO PICK HER UP AND REQUESTED CAB VOUCHER. SPOKE TO HOUSE SUPP REGARDING MATTER
[2019-10-12] MEDS ORDERED: MORPHINE SULFATE 2 MG/ML SYR IVP SCH (14:30)
--- NOTE | 2019-10-13 12:14 | NUR ---
PCP Appointment: CLIFFORD contacted Dr. Carolina Moran's office and spoke to Sierra [phone]. CLIFFORD scheduled appointment for 2:00PM on 10/19/2019 @ [address] [place] [address]. SW attempted to contact patient at [phone]. SW left voicemail for patient to notify of appointment.
== END 2019-10-12 14:25 | disposition home or self-care (01) | DRG 203 ==
LOC: MED 22:03 → MTU 10-12 00:28
PROVIDERS: ADMIT Internal Medicine Pulmonary Disease; ATTEND Internal Medicine Pulmonary Disease
DX: M94.0 Chondrocostal junction syndrome [Tietze] (principal); I11.0 Hypertensive heart disease with heart failure; I50.9 Heart failure, unspecified; M79.7 Fibromyalgia; E66.9 Obesity, unspecified; E78.5 Hyperlipidemia, unspecified; I25.10 Atherosclerotic heart disease of native coronary artery without angina pectoris; J44.9 Chronic obstructive pulmonary disease, unspecified; K21.9 Gastro-esophageal reflux disease without esophagitis; F17.210 Nicotine dependence, cigarettes, uncomplicated; G89.29 Other chronic pain; Z68.41 Body mass index [BMI] 40.0-44.9, adult; I25.2 Old myocardial infarction; Z86.73 Personal history of transient ischemic attack (TIA), and cerebral infarction without residual deficits; Z88.1 Allergy status to other antibiotic agents; Z88.8 Allergy status to other drugs, medicaments and biological substances
CPT/HCPCS: 36415; 71045; 80048; 80053; 83880; 84484; 85025; 87081; 93005; 96374; 99285; J2270; Q0092

== ENCOUNTER 2019-10-26 16:34 | Emergency (ER) | payer OTHER ==
[~2019-10-26] VITALS: Ht 167.6 cm; Wt 122.5 kg
--- NOTE | 2019-10-26 16:35 | NUR ---
PT BIBA ALS BY [facility] AND PLACED IN BED 4.
[2019-10-26 16:36] VITALS: BP 133/69
[2019-10-26 16:50] VITALS: BP 133/69
[2019-10-26] MEDS ORDERED: NACL 0.9% 1,000 ML IV ONE (16:50)
--- NOTE | 2019-10-26 16:50 | NUR ---
53 Y/O FEMALE PRESENTED WITH C/C OF DIZZINESS STARTING AT 1500 HOURS AFTER TAKING MEDICATION PER PATIENT "CINGULAR" ; PT BEGUN FEELING SENSATION OF DIZZINESS WITH NECK PAIN AND GOT WORSE, PT BROUGHT IN BY AMBULANCE. PT HAS SEVERAL ALLERGIES. MEDICATION ON A REGULAR BASIS. MEDICAL HX OF STROKE, HTN, CHF. DENIES N/V/D. PER PATIENT STATES SOB, CURRENT SPO2 OF 97 ROOM AIR. SIDE RAIL X1.
--- NOTE | 2019-10-26 17:05 | NUR ---
LAB AT BEDSIDE
[2019-10-26 17:17] LABS: BASOPHILS % (AUTO) 0.4 % (0.0-2.0); EOSINOPHILS % (AUTO) 0.5 % (0.0-4.0); HEMATOCRIT 38.5 % (36-48); HEMOGLOBIN 12.4 g/dL (12.0-16.0); LYMPHOCYTES # (AUTO) 1.9 K/uL (2.5-16.5); LYMPHOCYTES % (AUTO) 18.2 % (20.5-51.1); MEAN CORPUSCULAR HEMOGLOBIN 27 pg (27-31); MEAN CORPUSCULAR HGB CONC 32 g/dL (33-37); MEAN CORPUSCULAR VOLUME 85.5 fL (80-94); MONOCYTES # (AUTO) 0.5 K/uL (0.8-1.0); MONOCYTES % (AUTO) 5.3 % (1.7-9.3); NEUTROPHILS # (AUTO) 7.7 K/uL (1.8-7.7); NEUTROPHILS % (AUTO) 75.6 % (42.2-75.2); PLATELET COUNT (AUTO) 317 K/uL (140-450); WHITE BLOOD COUNT (AUTO) 10.2 K/uL (4.8-10.8)
--- NOTE | 2019-10-26 17:24 | NUR ---
PT ASSISTED TO BEDSIDE COMMODE ; TWO PERSON ASSIST.
--- NOTE | 2019-10-26 17:25 | NUR ---
PT STATES SHE CAN NOT URINATE AT THIS TIME. WILL GIVE NS BOLUS AND THEN REASSESS
[2019-10-26 17:42] LABS: ANION GAP 17.4 (8-16); CARBON DIOXIDE 23.9 mmol/L (21-32); POTASSIUM 3.3 mmol/L (3.5-5.1)
[2019-10-26] MEDS ORDERED: DIAZEPAM 5 MG TAB PO ONE (17:45)
[2019-10-26] MEDS ORDERED: MORPHINE SULFATE 2 MG/ML SYR IVP ONE (17:45)
[2019-10-26] MEDS ORDERED: diphenhydrAMINE 50 MG/ML VIAL IVP ONE (17:45)
--- NOTE | 2019-10-26 18:19 | NUR ---
PT STILL STATES SHE CAN NOT URINATE
--- NOTE | 2019-10-26 18:30 | NUR ---
PER PATIENT, MORPHINE HAS "WORN OFF", DR REILLY NOTIFIED
--- NOTE | 2019-10-26 18:34 | NUR ---
PER DR REILLY, PT IS TO BE DISCHARGED. URINE DOES NOT NEED TO BE COLLECTED
--- NOTE | 2019-10-26 19:02 | NUR ---
URINE COLLECTED AND DIPPED
--- NOTE | 2019-10-26 19:03 | NUR ---
PER DR REILLY, PT TO BE GIVEN MORPHINE IVP AND THEN DISCHARGED
[2019-10-26] MEDS ORDERED: MORPHINE SULFATE 4 MG/ML SYR IVP ONE (19:10)
--- NOTE | 2019-10-26 19:16 | NUR ---
REPORT GIVEN TO MATTHIAS DARNELL
--- NOTE | 2019-10-26 19:17 | NUR ---
RECEIVED REPORT FROM DAYSHIFT NURSE AT PATIENTS BEDSIDE. WILL FOLLOWUP CARE.
--- NOTE | 2019-10-26 19:24 | NUR ---
53 Y/O F C/O PAIN AT NECK AND BACK, RATES PAIN 8/10. REPORTS PAIN STARTED WHEN PT TOOK NEW MEDICATION TODAY. RFA 22G PERIPHERAL IV IN PLACE, SALINE LOCKED, BED LOCKED AND IN LOW POSITION, SIDERAILS UPx1. PATIENT UPDATED ON TREATMENT PLAN, WILL CONTINUE TO MONITOR.
--- NOTE | 2019-10-26 20:01 | NUR ---
REASSESSED PAIN LEVEL, PATIENT REPORTS PAIN AT 5 AND IMPROVING, NO SIGNS OF REACTION.
--- NOTE | 2019-10-26 20:06 | NUR ---
Patient discharged with v/s stable. Written and verbal after care instructions given and explained. Patient alert, oriented and verbalized understanding of instructions. Ambulatory with steady gait. All questions addressed prior to discharge. ID band removed. Patient advised to follow up with PMD. Rx of BENADRYL given. Patient educated on indication of medication including possible reaction and side effects. Opportunity to ask questions provided and answered.
== END 2019-10-26 20:06 | disposition home or self-care (01) ==
LOC: MED 16:34
DX: M62.838 Other muscle spasm (principal); T44.3X5A Adverse effect of other parasympatholytics [anticholinergics and antimuscarinics] and spasmolytics, initial encounter; Y92.89 Other specified places as the place of occurrence of the external cause; K21.9 Gastro-esophageal reflux disease without esophagitis; J44.9 Chronic obstructive pulmonary disease, unspecified; I11.0 Hypertensive heart disease with heart failure; I50.9 Heart failure, unspecified; Z79.899 Other long term (current) drug therapy; Z88.8 Allergy status to other drugs, medicaments and biological substances; Z88.1 Allergy status to other antibiotic agents; Z86.73 Personal history of transient ischemic attack (TIA), and cerebral infarction without residual deficits; Z90.89 Acquired absence of other organs
CPT/HCPCS: 36415; 80048; 81002; 81025; 85025; 96374; 96375; 96376; 99283; J1200; J2270; J7030

== ENCOUNTER 2020-02-27 17:16 | Emergency (ER) | payer OTHER ==
[~2020-02-27] VITALS: Ht 167.6 cm; Wt 108.9 kg
[2020-02-27 17:26] VITALS: BP 125/80
[2020-02-27] MEDS ORDERED: MORPHINE SULFATE 4 MG/ML SYR IVP ONE (17:45)
[2020-02-27] MEDS ORDERED: ONDANSETRON 4 MG/2 ML VIAL IVP ONE (17:45)
[2020-02-27] MEDS ORDERED: NACL 0.9% 500 ML IV ONE (17:45)
[2020-02-27 19:32] LABS: BASOPHILS % (AUTO) 0.4 % (0.0-2.0); EOSINOPHILS # (AUTO) 0.1 K/uL (0-0.4); EOSINOPHILS % (AUTO) 0.8 % (0.0-4.0); HEMATOCRIT 35.7 % (36-48); HEMOGLOBIN 11.3 g/dL (12.0-16.0); LYMPHOCYTES # (AUTO) 2.5 K/uL (2.5-16.5); LYMPHOCYTES % (AUTO) 31.9 % (20.5-51.1); MEAN CORPUSCULAR HEMOGLOBIN 27 pg (27-31); MEAN CORPUSCULAR HGB CONC 32 g/dL (33-37); MEAN CORPUSCULAR VOLUME 85.9 fL (80-94); MONOCYTES # (AUTO) 0.5 K/uL (0.8-1.0); NEUTROPHILS # (AUTO) 4.7 K/uL (1.8-7.7); NEUTROPHILS % (AUTO) 60.9 % (42.2-75.2); PLATELET COUNT (AUTO) 280 K/uL (140-450); RED BLOOD CELL COUNT(AUTO) 4.15 MIL/uL (4.20-5.40); WHITE BLOOD COUNT (AUTO) 7.8 K/uL (4.8-10.8)
[2020-02-27 20:01] LABS: PROTHROMBIN TIME 10.2 secs (10.8-13.4)
[2020-02-27 20:04] LABS: ALBUMIN 3.3 g/dL (3.4-5.0); ANION GAP 10.8 (8-16); CARBON DIOXIDE 31.3 mmol/L (21-32); CREATININE 0.9 mg/dL (0.6-1.3); POTASSIUM 4.1 mmol/L (3.5-5.1); TOTAL BILIRUBIN 0.2 mg/dL (0.0-1.0)
[2020-02-27 21:35] VITALS: BP 135/87
== END 2020-02-27 21:35 | disposition home or self-care (01) ==
LOC: MED 17:16
DX: B34.9 Viral infection, unspecified (principal); R07.9 Chest pain, unspecified; J45.909 Unspecified asthma, uncomplicated; K21.9 Gastro-esophageal reflux disease without esophagitis; I10 Essential (primary) hypertension; Z88.8 Allergy status to other drugs, medicaments and biological substances; Z88.6 Allergy status to analgesic agent; Z88.5 Allergy status to narcotic agent; Z88.1 Allergy status to other antibiotic agents; Z79.899 Other long term (current) drug therapy
CPT/HCPCS: 36415; 71045; 80053; 83605; 83880; 84484; 85025; 85610; 85730; 87040; 87081; 87804; 93005; 96374; 96375; 99285; J2270; J2405; J7030; Q0092